=== PATIENT | female | born 1995 | race African-American/Black ===

== ENCOUNTER 2017-01-10 16:58 | Emergency (ER) | payer OTHER ==
[~2017-01-10] VITALS: Ht 167.6 cm; Wt 62.0 kg
[2017-01-10 18:11] VITALS: BP 125/68
== END 2017-01-10 21:40 | disposition left against medical advice (07) ==
LOC: ER 16:59
DX: N93.9 Abnormal uterine and vaginal bleeding, unspecified (principal); Z53.21 Procedure and treatment not carried out due to patient leaving prior to being seen by health care provider

== ENCOUNTER 2017-05-28 10:50 | Emergency (ER) | payer OTHER ==
[~2017-05-28] VITALS: Ht 167.6 cm; Wt 63.0 kg
[2017-05-28] MEDS ORDERED: ONDANSETRON HCL 4MG/2ML VIAL IV STA (13:34)
[2017-05-28] MEDS ORDERED: KETOROLAC 30MG/ML VIAL IV STA (13:34)
[2017-05-28] MEDS ORDERED: SODIUM CHLORIDE 0.9% 1,000 ML IV ONE (13:34)
[2017-05-28 14:03] LABS: BASOPHILS % 0.6 % (0.0-2.0); EOSINOPHILS % 1.4 % (0.0-5.0); HEMATOCRIT. 36.4 % (36.0-48.0); HEMOGLOBIN. 11.8 g/dL (12.0-16.0); LYMPHOCYTES % 22.3 % (20.0-50.0); MEAN CORPUSCULAR HEMOGLOBIN 25.6 pg (28.0-32.0); MEAN CORPUSCULAR VOLUME 78.9 fL (81.0-99.0); MEAN PLATELET VOLUME 8.5 fl (7.4-10.4); NEUTROPHILS % 67.7 % (40.0-76.0); PLATELET 214 x1000/uL (130-400); RED BLOOD CELL COUNT 4.61 mill/uL (4.2-5.4); RED CELL DISTRIBUTION WIDTH 14.9 % (11.6-14.6)
[2017-05-28 14:09] LABS: CHLORIDE 106 mEq/L (98-107); PROTHROMBIN TIME 10.7 sec (9.4-11.6)
[2017-05-28 14:11] LABS: CARBON DIOXIDE 29 mEq/L (21-32)
[2017-05-28 14:13] LABS: HCG SCREEN NEGATIVE
[2017-05-28 15:25] LABS: CLARITY URINE CLEAR (CLEAR); COLOR URINE YELLOW (YELLOW); GLUCOSE URINE NEGATIVE (NEGATIVE); KETONES URINE NEGATIVE (NEGATIVE); LEUKOCYTE ESTERASE URINE NEGATIVE (NEGATIVE); NITRITE URINE NEGATIVE (NEGATIVE); OCCULT BLOOD URINE NEGATIVE (NEGATIVE); PH URINE 5.5 (4.5-8.0); PROTEIN URINE NEGATIVE (NEGATIVE); SPECIFIC GRAVITY URINE 1.019 (1.005-1.030); UROBILINOGEN URINE 0.2 E.U./dL (0.2-1.0)
[2017-05-28 16:01] LABS: *AMPHETAMINES SCREEN URINE NEGATIVE (NEGATIVE); *BARBITURATES SCREEN URINE NEGATIVE (NEGATIVE); *BENZODIAZEPINES SCREEN URINE NEGATIVE (NEGATIVE); *COCAINE SCREEN URINE NEGATIVE (NEGATIVE); CANNABINOID URINE SCREEN NEGATIVE (NEGATIVE); METHADONE URINE SCREEN NEGATIVE (NEGATIVE); OPIATES URINE SCREEN NEGATIVE (NEGATIVE); PHENCYCLIDINE URINE SCREEN NEGATIVE (NEGATIVE)
[2017-05-28 17:02] VITALS: BP 128/72
== END 2017-05-28 17:08 | disposition home or self-care (01) ==
LOC: ER 12:46
DX: R10.9 Unspecified abdominal pain (principal)
CPT/HCPCS: 36415; 80053; 80305; 81003; 83690; 84703; 85025; 85610; 96361; 96374; 96375; 99285; J1885; J2405; J7030; Z7610

== ENCOUNTER 2019-07-16 22:20 | Emergency (ER) | payer OTHER ==
[~2019-07-16] VITALS: Ht 167.6 cm; Wt 69.0 kg
[2019-07-17 00:04] LABS: CLARITY URINE CLEAR (CLEAR); COLOR URINE YELLOW (YELLOW); KETONES URINE NEGATIVE (NEGATIVE); LEUKOCYTE ESTERASE URINE NEGATIVE (NEGATIVE); NITRITE URINE NEGATIVE (NEGATIVE); OCCULT BLOOD URINE NEGATIVE (NEGATIVE); PROTEIN URINE NEGATIVE (NEGATIVE); SPECIFIC GRAVITY URINE 1.019 (1.005-1.030); UROBILINOGEN URINE 0.2 E.U./dL (0.2-1.0)
[2019-07-17 00:26] LABS: BASOPHILS % 0.7 % (0.0-2.0); EOSINOPHILS % 2.5 % (0.0-5.0); HEMOGLOBIN. 10.7 g/dL (12.0-16.0); LYMPHOCYTES % 26.8 % (20.0-50.0); MEAN CORPUSCULAR HEMOGLOBIN 24.5 pg (28.0-32.0); MEAN CORPUSCULAR VOLUME 75.4 fL (81.0-99.0); MEAN PLATELET VOLUME 8.8 fl (7.4-10.4); MONOCYTES % 11.1 % (2.0-8.0); NEUTROPHILS % 58.9 % (40.0-76.0); PLATELET 241 x1000/uL (130-400); RED BLOOD CELL COUNT 4.37 mill/uL (4.2-5.4); RED CELL DISTRIBUTION WIDTH 17.6 % (11.6-14.6)
[2019-07-17 00:35] LABS: CHLORIDE 107 mEq/L (98-107)
[2019-07-17 00:38] LABS: HCG SCREEN NEGATIVE
[2019-07-17 00:51] LABS: D-DIMER 0.35 mg/L FEU (<0.50); PARTIAL THROMBOPLASTIN TIME 33.5 sec (23.4-31.0); PROTHROMBIN TIME 10.7 sec (9.6-11.0)
[2019-07-17] MEDS ORDERED: IOHEXOL-350 100 ML BOTTLE ONE (02:40)
[2019-07-17 05:18] VITALS: BP 120/64
== END 2019-07-17 05:18 | disposition home or self-care (01) ==
LOC: ER 22:20
DX: R07.89 Other chest pain (principal); R00.2 Palpitations; R03.0 Elevated blood-pressure reading, without diagnosis of hypertension; J02.9 Acute pharyngitis, unspecified; R09.89 Other specified symptoms and signs involving the circulatory and respiratory systems
CPT/HCPCS: 36415; 71045; 71275; 80053; 81003; 83690; 83880; 84484; 84703; 85025; 85379; 85610; 85730; 93005; 99284; Q9967; Z7610

== ENCOUNTER 2020-09-04 01:54 | Observation (INO) | payer MEDICAID ==
[~2020-09-04] VITALS: Ht 167.6 cm; Wt 90.7 kg
[2020-09-04] MEDS ORDERED: PREN-176 PO (02:52)
[2020-09-04] MEDS ORDERED: FERR325T6 PO (02:52)
[2020-09-04 04:15] LABS: CLARITY URINE CLEAR (CLEAR); COLOR URINE YELLOW (YELLOW); KETONES URINE NEGATIVE (NEGATIVE); LEUKOCYTE ESTERASE URINE TRACE (NEGATIVE); NITRITE URINE NEGATIVE (NEGATIVE); OCCULT BLOOD URINE 2+ (NEGATIVE); PROTEIN URINE NEGATIVE (NEGATIVE); SPECIFIC GRAVITY URINE 1.019 (1.005-1.030); UROBILINOGEN URINE 0.2 E.U./dL (0.2-1.0)
[2020-09-04] MEDS ORDERED: BETAMETHASONE ACET/BETAMET 30 MG/5 ML VIAL IM ONE (05:30)
[2020-09-04] MEDS ORDERED: CEFAZOLIN 2,000 MG in DEXT 5% WATER 100 ML IV SCH (06:00)
[2020-09-05] MEDS ORDERED: PREN-182 PO (05:56)
[2020-09-05] MEDS ORDERED: FERR325T6 PO (05:56)
== END 2020-09-04 06:30 | disposition home or self-care (01) ==
LOC: 8 EST LDRP 01:54
PROVIDERS: ADMIT Specialist; ATTEND Specialist
DX: O36.8130 Decreased fetal movements, third trimester, not applicable or unspecified (principal); R10.2 Pelvic and perineal pain; O26.893 Other specified pregnancy related conditions, third trimester; Z3A.30 30 weeks gestation of pregnancy
CPT/HCPCS: 59025; 76815; 76818; 81003; 82731; 96365; 96372; G0378; J0690; J0702; J7060; 99281

== ENCOUNTER 2020-09-05 05:15 | Observation (INO) | payer MEDICAID ==
[~2020-09-05] VITALS: Ht 165.1 cm; Wt 90.7 kg
[~2020-09-05 05:15] MED LIST: FERR325T6 PO; PREN-176 PO
[2020-09-05] MEDS ORDERED: FERR325T6 PO (05:56)
[2020-09-05] MEDS ORDERED: PREN-182 PO (05:56)
[2020-09-05] MEDS ORDERED: BETAMETHASONE ACET/BETAMET 30 MG/5 ML VIAL IM NR (06:00)
== END 2020-09-05 07:00 | disposition home or self-care (01) ==
LOC: 8 EST LDRP 05:15
PROVIDERS: ADMIT Specialist; ATTEND Specialist
DX: O26.893 Other specified pregnancy related conditions, third trimester (principal); R10.30 Lower abdominal pain, unspecified; Z3A.30 30 weeks gestation of pregnancy
CPT/HCPCS: 59025; 96372; G0378; J0702; 99281

== ENCOUNTER 2025-05-21 22:51 | Emergency (ER) | payer MEDICAID, OTHER ==
[~2025-05-21] VITALS: Ht 167.6 cm; Wt 97.0 kg
[~2025-05-21 22:51] MED LIST changes: +PREN-182 PO
[2025-05-21 23:05] VITALS: BP 136/76; PULSE 95; RESP 18; TEMP 36.7; O2SAT 100; O2SAT 98
[2025-05-22] MEDS ORDERED: TC025C15 TP (00:21)
[2025-05-22] MEDS ORDERED: CLOT10TR2 MT (00:25)
[2025-05-22] MEDS ORDERED: VORI200T3 MT (00:25)
== END 2025-05-22 01:25 | disposition home or self-care (01) ==
LOC: ER 22:51
DX: B37.0 Candidal stomatitis (principal); Z79.899 Other long term (current) drug therapy
CPT/HCPCS: 99283